=== PATIENT | female | born 1950 | race Caucasian/White ===

== ENCOUNTER 2017-12-26 07:32 | Outpatient (CLI) | payer MEDICARE ==
[~2017-12-26] VITALS: Ht 165.1 cm; Wt 65.5 kg
--- NOTE | ~2017-12-26 | OP ---
PATIENT NAME: LEIF RODARTE MEDICAL RECORD: [id number] :50 LOCATION:D.CAT ADMISSION DATE: SURGEON: AYSE VILLATORO MD DATE OF OPERATION: 12/26/2017 PROCEDURES: 1. PTCA stent RCA. 2. Selective coronary angiography. INDICATION: Angina and coronary artery disease. PROCEDURE IN DETAIL: After informed consent was obtained and after a detailed description of risks, benefits as well as alternative therapies, the patient elected to proceed with angiogram and angioplasty. The right radial area was prepped and draped in normal sterile fashion. Right radial artery was cannulated via modified Seldinger technique with placement of 6-Latvian sheath. All catheters exchanged through this sheath. FINDINGS: The right coronary artery has a long area of 80+ percent stenosis. This was addressed with a 3.5 x 38 mm [place] stent. Result was 0% residual stenosis. OVERALL IMPRESSION: Successful percutaneous transluminal coronary angioplasty stent of the right coronary artery going from 80% initial stenosis to 0% residual. TRANSINT:[id number] Voice Confirmation ID: [id number] DOCUMENT ID: [id number] AYSE VILLATORO MD at 1752 CC: [id number] DICTATION DATE: 12/26/17 1051 BLANKET BINDER: 12/26/17 1216 [facility] CLI 12/26/17 [address] [place] [address]
--- NOTE | ~2017-12-26 | HEMODYNAMI ---
PATIENT:LEIF RODARTE MEDICAL RECORD: [id number] : 50 LOCATION:DADA ADMISSION DATE: 12/26/17 Generatedon:12/26/201710:52 Patient name: LEIF RODARTE Patient #: [id number] SSN: : 1950 Date of study: 12/26/2017 Page: Of Hemodynamic Procedure Report Patient Data Patient Demographics Procedure consent was obtained First Name: LEIF Gender: Female Last Name: CAYDEN : 1950 Patient #: [id number] Age: 67 year(s) Race: Unknown Additional ID: [id number] Contact details Address: [address] [place] [address] State: [place] City: [place] Zip code: [address] Admission Admission Data Admission Date: 12/26/2017 Admission Time: 7:32 Height (in.): 65 BSA: 1.72 (m2) Height (cm.): 165.1 BMI: 23.96 (kg/m2) Weight (lbs.): 144 Weight (kg.): 65.32 Lab Results Lab Result Date: 12/26/2017 Lab Result Time: 0:00 Biochemistry Name Units Result Min Max BUN mg/dl 17 --(---*)-- 7 18 Creatinine mg/dl 1 --(--*-)-- 0.6 1.3 CBC Name Units Result Min Max Hemoglobin g/dl 13.3 -*(----)-- 13.5 17.5 Procedure Procedure Types Cath Procedure PCI Procedure Coronary Stent Coronary Stent Initial Procedure Description Procedure Date Procedure Date: 12/26/2017 Procedure Start Time: 10:41 Procedure End Time: 10:51 Procedure Staff Name Function Mike Banegas MD Performing Physician Trino Mcclain RT Monitor Jacinto Escalante RN Nurse Elli Mercado RT Scrub Procedure Data Cath Procedure Fluoroscopy Diagnostic fluoroscopy Total fluoroscopy Time: 1.5 time: 1.5 min min Diagnostic fluoroscopy Total fluoroscopy dose: dose: 250.38 mGy 250.38 mGy Contrast Material Contrast Material Type Amount (ml) Isovue 300 27 Entry Location Entry Primary Successful Side Size Upsize Upsize Entry Closure Harmon ccessful Closure Location (Fr) 1 (Fr) 2 (Fr) Remarks Device Remarks Radial Right 6 Fr Mechanical artery Short Compression Estimated blood loss: 10 ml Procedure Medications Medication Administration Route Dosage Oxygen etCO2 Nasal cannula 2 l/min Heparin Flush Bag added to field 2 bags (1000units/500ml NS) 0.9% NaCl I.V. 100 ml/hr Radial Cocktail added to field 1 syringe (Verapomil 2mg/Nitro 400mcg/Heparin 1500units) Fentanyl I.V. 50 mcg Versed I.V. 1 mg Fentanyl I.V. 50 mcg Versed I.V. 1 mg Radial Cocktail I.A. 1 syringe (Verapomil 2mg/Nitro 400mcg/Heparin 1500units) Heparin Bolus I.V. 4000 units Hemodynamics Rest BSA: 1.72 (m2) HGB: 13.3 (g/dl) O2 Consumption: Estimated: 145.14 (ml/min) O2 Co nsumption indexed: Estimated:84.38 (ml/min/m) Heart Rate: 47 (bpm) Snapshots Pre Cath Intra NCS Post Cath Vital Signs Time Heart Resp SPO2 etCO2 NIBP Rhythm Pain Sedation Rate (ipm) (%) (mmHg) (mmHg) Status Level (bpm) 9:54:56 48 16 95 0 135/61(95) NSR 0 (11) 10(A) , No pain 9:59:25 47 16 98 39.7 128/58(96) NSR 0 (11) 10(A) , No pain 10:03:49 46 16 100 39 123/58(80) NSR 0 (11) 10(A) , No pain 10:08:11 47 16 100 35.3 119/58(85) NSR 0 (11) 10(A) , No pain 10:12:37 48 16 98 23.2 118/47(85) NSR 0 (11) 10(A) , No pain 10:17:04 48 17 98 41.3 99/40(70) NSR 0 (11) 10(A) , No pain 10:21:20 47 17 98 41.3 97/45(77) NSR 0 (11) 10(A) , No pain 10:25:36 48 17 97 39 95/47(68) NSR 0 (11) 10(A) , No pain 10:29:50 48 17 97 36.8 106/48(72) NSR 0 (11) 10(A) , No pain 10:34:08 48 16 98 38.3 101/51(68) NSR 0 (11) 9(A) , No pain 10:38:24 47 17 97 36.8 96/47(70) NSR 0 (11) 9(A) , No pain 10:42:34 49 16 96 36.8 96/51(66) NSR 0 (11) 9(A) , No pain 10:46:50 56 16 93 37.5 92/41(66) NSR 0 (11) 9(A) , No pain 10:50:00 36.8 96/50(69) NSR 0 (11) 9(A) , No pain Medications Time Medication Route Dose Verified Delivered Reason Not es Effectiveness by by 9:58:52 Oxygen etCO2 2 l/min Mike Casey Per physician Nasal Makenzie Escalante RN cannula 9:59:00 Heparin Flush added 2 bags Mike Casey used for Bag to Makenzie Escalante RN procedure (1000units/500ml field NS) 9:59:11 0.9% NaCl I.V. 100 Mike Casey Per physician ml/hr Makenzie Escalante RN 9:59:33 Radial Cocktail added 1 Mike Casey used for (Verapomil to syringe Makenzie Escalante RN procedure 2mg/Nitro field 400mcg/Heparin 1500units) 10:32:02 Fentanyl I.V. 50 mcg Mike Casey for sedation Makenzie Escalante RN 10:32:15 Versed I.V. 1 mg Mike Casey for sedation Makenzie Escalante RN 10:34:40 Fentanyl I.V. 50 mcg Mike Csaey for sedation Makenzie Escalante RN 10:34:43 Versed I.V. 1 mg Mike Alfaroy for sedation Makenzie Escalante RN 10:43:36 Radial Cocktail I.A. 1 Mike Mckeon for (Verapomil syringe Makenzie thapa 2mg/Nitro 400mcg/Heparin 1500units) 10:43:50 Heparin Bolus I.V. 4000 Mike Casey for units Makenzie Escalante RN anticoagulation Procedure Log Time Note 9:40:52 Jacinto Escalante RN sent for patient. Start room use. 9:51:53 Diagnostic Cath status Elective 9:53:05 Time tracking: Regular hours (M-F 7:00 - 5:00) 9:53:11 Plan of Care:Hemodynamics will remain stable., Cardiac rhythm will remain stable., Comfort level will be maintained., Respiratory function will remain adequate., Patient/ family verbilizes understanding of procedure., Procedure tolerated without complication., Recovers from procedure without complications.. 9:53:22 Patient received from Pre/Post Procedure Room to CCL 3 Alert and oriented. Tansferred to table in Supine position. 9:53:24 Warm blankets applied, and deborah hugger turned on for patient comfort. 9:53:25 Correct patient and procedure confirmed by team. 9:53:28 Signed procedure consent form obtained from patient. 9:53:29 ECG and BP/O2 sat monitors applied to patient. 9:53:29 Vital chart was started 9:53:30 Baseline sample Acquired. 9:53:43 Rhythm: sinus bradycardia 9:53:47 Full Disclosure recording started 9:58:37 H&P Date Dictated: 12/18/2017 Within 30 days and on chart., H&P Addendum completed by physician on day of procedure. (MUST COMPLETE FOR ALL OUTPATIENTS). 9:58:38 Pre-procedure instructions explained to patient. 9:58:39 Pre-op teaching completed and patient verbalized understanding. 9:58:43 Family in patients room. 9:58:46 Patient NPO since Midnight. 9:58:52 Oxygen 2 l/min etCO2 Nasal cannula was administered by Jacinto Escalante RN; Per physician; 9:58:53 Is the patient allergic to Iodine/contrast media? No. 9:58:56 Is patient on blood thinner?Yes 9:58:59 ACC The patient was administered the following blood thiners within the last 24 hours: ACCPlavix 9:59:00 Heparin Flush Bag (1000units/500ml NS) 2 bags added to field was administered by Jacinto Escalante RN; used for procedure; 9:59:02 Patient diabetic? No. 9:59:06 ----Pre-sedation anethsthesia assessment.---- 9:59:11 0.9% NaCl 100 ml/hr I.V. was administered by Jacinto Escalante RN; Per physician; 9:59:11 Patient not . Patient is over age 55. 9:59:15 Previous problem with sedation/anesthesia? No ? 9:59:23 Snore? No 9:59:25 Sleep apnea? No 9:59:29 Deviated septum? No 9:59:30 Opens mouth fully? Yes 9:59:31 Sticks out tongue? Yes 9:59:33 Radial Cocktail (Verapomil 2mg/Nitro 400mcg/Heparin 1500units) 1 syringe added to field was administered by Jacinto Escalante RN; used for procedure; 9:59:43 Airway obstruction? Yes COPD 9:59:51 Dentures? Yes IN TIGHT 9:59:57 Pre procedure: right dorsailis pedis pulse 2+ Normal; easily identifiable; not easily obliterated 10:00:01 Patient pain scale 0/10 ?. 10:00:13 IV patent on arrival in left wrist with 0.9% NaCl at O. 10:00:46 Lab Result : BUN 17 mg/dl 10:00:46 Lab Result : Hemoglobin 13.3 g/dl 10:00:46 Lab Result : Creatinine 1 mg/dl 10:04:39 Zero performed for pressure channel P1 10:05:13 Lab results completed and on chart. 10:06:32 Right Radial & Right Groin area was prepped with chlora-prep and draped in sterile fashion 10:06:33 Alarms reviewed by R. N. 10:06:36 Sharps counted by scrub and verified by R.N. 10:10:47 Patient Height : 65 inches 10:10:52 Patient Weight : 144 lbs 10:11:31 ACIST Syringe (68510) opened to sterile field. 10:11:33 Medline Cath Pack ([id number]) opened to sterile field. 10:11:35 Bag Decanter (2002) opened to sterile field. 10:11:37 DIAGNOSTIC WIRE .035 260cm J wire (163820) opened to sterile field. 10:11:38 ACIST Hand Control (06219) opened to sterile field. 10:11:39 ACIST Manifold (60003) opened to sterile field. 10:11:45 Tegaderm 4 x 4 (1626W) opened to sterile field. 10:11:48 MBrace Wrist Support ([id number]) opened to sterile field. 10:12:42 SHEATH 6Fr Prelude Radial ([id number]) opened to sterile field. 10:13:00 INFLATOR Merit Jorgek (EU3325) opened to sterile field. 10:13:16 CHOICE PT Extra Support 182cm wire ([id number]) opened to sterile field. 10:31:24 Physician arrived 10::25 --------ALL STOP TIME OUT------ :: Final Timeout: patient, procedure, and site verified with staff and physician. All members of the team are in agreement. 10:31:31 Right Radial & Right Groin site verified by team. 10:31:35 Physical assessment completed. ASA score P 2 - A patient with mild systemic disease as per Mike Banegas MD. 10:31:42 Sedation plan: IV Moderate Sedation Medication:Versed, Fentanyl 10:32:02 Fentanyl 50 mcg I.V. was administered by Jacinto Escalante RN; for sedation; 10:32:04 GUIDE 6FR AR 1.0 catheter (SF5CI00) opened to sterile field. 10:32:15 Versed 1 mg I.V. was administered by Jacinto Escalante RN; for sedation; 10:34:40 Fentanyl 50 mcg I.V. was administered by Jacinto Escalante RN; for sedation; 10:34:43 Versed 1 mg I.V. was administered by Jacinto Escalante RN; for sedation; 10:38:13 TR BAND Standard (HOT19UVK) opened to sterile field. 10:38:14 Tegaderm 4 x 4 (1626W) opened to sterile field. 10:41:42 Procedure started. 10:41:54 Local anesthetic to right radial artery with Lidocaine 2% by Mike Banegas MD.INITIAL ACCESS ONLY 10:42:50 A 6 Fr Short sheath was inserted into the Right Radial artery 10:43:36 Radial Cocktail (Verapomil 2mg/Nitro 400mcg/Heparin 1500units) 1 syringe I.A. was administered by Mike Banegas MD; for vasodilation; 10:43:50 Heparin Bolus 4000 units I.V. was administered by Jacinto Escalante RN; for anticoagulation; 10:44:01 6 Fr AR 1 guide catheter was inserted over the wire 10:44:39 CHOICE wire advanced. 10:45:00 Wire advanced across lesion. 10:46:16 Place stent Inflation Number: 1 A PRASANTH RX 3.5 x 38 stent ([id number]) was prepped and advanced across the Mid RCA. The stent was deployed at 17 CHRISTINA for 0:10 (min:sec). 10:47:51 Stent catheter was removed intact over wire. 10:47:53 Wire removed. 10:47:53 Guide catheter removed. 10:48:07 Sheath removed intact; hemostasis achieved with Mechanical Compression to the Right Radial artery. 10:48:11 Procedure ended.(Physican Out) 10:48:37 Fluoroscopy time 01.50 minutes. 10:48:43 Flurop Dose total: 250.38 10:48:43 Fluoroscopy dose: 250.38 mGy 10:48:53 Contrast amount:Isovue 300 27ml. 10:49:03 Sharps counted by scrub and verified by R.N. 10:49:50 TR band inflated with 10cc of air. 10:49:52 Insertion/operative site no bleeding no hematoma. 10:50:04 Post right radial artery:stable 10:50:13 Post-procedure physical assessment completed. ASA score P 2 - A patient with mild systemic disease as per Mike Banegas MD. 10:50:34 Post procedure rhythm: unchanged., sinus bradycardia 10:50:41 Estimated blood loss: 10 ml 10:50:43 Post procedure instruction explained to patient.Patient verbalizes understanding. 10:50:43 Patient needs reinforcement of post procedure teaching. 10:50:44 Procedure and supply charges have been captured, reviewed, submitted and are correct. 10:51:01 Procedure type changed to Cath procedure, PCI procedure, Coronary Stent, Coronary Stent Initial 10:51:27 Vital chart was stopped 10:51:28 See physician's report for complete and final results. 10:51:30 Report given to Pre/Post Procedure Room. 10:51:33 Patient transfered to Pre/Post Procedure Room with Stretcher. 10:51:37 Procedure ended. 10:51:37 Full Disclosure recording stopped 10:51:42 End room use (Document Last) Intervention Summary Intervention Notes Time ActionType Lesion and Equipment Used Action# Pressure Duration Attributes 10:46:16 Place stent Mid RCA PRASANTH RX 3.5 x 1 17 00:10 38 stent ([id number]) Device Usage Item Name Manufacture Quantity Catalog Number Hospital Part Current Minimal Lot# / Charge Number Stock Stock Serial# Code ACIST Syringe Acist 1 45709 682932 237160 [id number] 20 (33661) Medical Systems Inc Medline Cath Cardinal 1 [id number] 961084 12581 159188 5 Pack Health ([id number]) Bag Decanter Microtek 1 2001S 817698 34802 940197 5 (2001S) Medical Inc. DIAGNOSTIC WIRE St Demetrius 1 089700 791527 120780 327730 30 .035 260cm J wire (999483) ACIST Hand Acist 1 41693 423458 639047 808279 5 Control (02830) Medical Systems Inc ACIST Manifold Acist 1 36598 826025 032531 742419 5 (04293) Medical Systems Inc Tegaderm 4 x 4 3M 2 1626W 603374 651631 119840 5 (1626W) MBrace Wrist Advanced 1 140-0250-00 782871 33337 052206 5 Support Vascular ([id number]) Dynamics SHEATH 6Fr Merit 1 [id number] 320311 454168 531861 5 Prelude Radial Medical ([id number]) INFLATOR Merit Merit 1 [id number] 507190 285275 662971 15 [facility] (FV0642) CHOICE PT Extra [place] 1 [id number] 366797 831058 396863 5 Support 182cm Scientific wire ([id number]) GUIDE 6FR AR Medtronic 1 [id number] 573813 00928 873105 1 1.0 catheter (IF0ZX78) TR BAND Terumo 1 [id number] 914946 732613 325633 40 Standard ([id number]) PRASANTH RX 3.5 x Medtronic 1 [id number] 495505 9874294 717330 5 [id number] 38 stent ([id number]) Signature Audit [place] Stage Time Signature Unsigned Intra-Procedure 12/26/2017 Trino Mcclain 10:52:18 AM RT(R) (CV) Signatures Monitor : Trino Mcclain RT Signature : Date : Time : [id number] [place] [address]
--- NOTE | ~2017-12-26 | HP ---
PATIENT: LEIF ROBERTS MEDICAL RECORD: [id number] ACCOUNT: [id number] LOCATION:DADA : 50 ADMISSION DATE: 12/26/17 HISTORY AND PHYSICAL EXAMINATION DIAGNOSES: 1. Angina. 2. Coronary artery disease. 3. Recent percutaneous transluminal coronary angioplasty stent of left anterior descending and left circumflex with concomitant disease right coronary artery. HISTORY OF PRESENT ILLNESS: Ms. Roberts presents with anginal symptomatology, found to have severe 3-vessel coronary artery disease, underwent PTCA stent of the LAD and circumflex. He is now brought back for PTCA stent of the RCA. REVIEW OF SYSTEMS: The patient reports easy bruising but reports no swollen glands. The patient reports no fever, no night sweats, no significant weight gain, no significant weight loss. No significant exercise tolerance. The patient reports no dry eyes, no irritation, no vision change. Patient reports no difficulty hearing and no ear pain. Patient reports no frequent nose bleeds or nose and sinus problems. Patient reports on arm pain on exertion. No shortness of breath while lying down. No history of heart murmur. Patient reports no cough, no wheezing or coughing up blood. Patient reports no abdominal pain, no vomiting. Normal appetite. No diarrhea and not vomiting blood. No nausea and no constipation. Patient reports no incontinence. No difficulty urinating. No hematuria. No increased frequency. Patient reports no muscle aches. No weakness, no arthralgias, no back pain. No swelling of the extremities. Patient reports no abnormal mole, no jaundice, no rashes. Reports no loss of consciousness. No weakness and no numbness. No seizures, dizziness, or headaches. The patient reports no depression, no sleep disturbance, feeling safe in a relationship and no alcohol abuse. Patient reports on fatigue. Reports no runny nose or sinus pressure. No itching, no hives, and no frequent sneezing. PHYSICAL EXAMINATION: GENERAL APPEARANCE: Well-nourished, well-developed, appears stated age. Level of distress, comfortable. PSYCHIATRIC: Mental status, alert, normal affect. Orientation, oriented to time, place and person. EYES: Lids and conjunctiva, noninjected. No discharge, no pallor. ENT: Lips, teeth, gums, normal dentition. Oropharynx, no cyanosis, no pallor. NECK: Carotid arteries, bilateral normal upstroke, no bruits, no thrills. JUGULAR VEINS: No jugular venous pressure or distention. CERVICAL LYMPH NODES: Nontender, nonenlarged. THYROID: Not enlarged. Nontender. No nodules. LUNGS: Respiratory effort, unlabored. CHEST: Normal curvature. No thoracic deformity. No chest wall tenderness. Percussion, resonant. Auscultation, clear. No wheezes, no rales, no rhonchi. CARDIOVASCULAR: Precordial exam, nondisplaced. No heaves or pericardial thrills. Rate and rhythm, regular. Heart sounds, normal S1, normal S2. No S3, no gallop, no rub. Systolic murmur, not heard. Diastolic murmur, not heard. EXTREMITIES: No cyanosis, no edema. Peripheral pulses, full and equal in all extremities, except as noted. No bruits appreciated. ABDOMEN: Soft, nondistended. Normal aorta. No bruit. Nontender. No masses. HISTORY AND PHYSICAL [id number] CAYDEN,LEIF Liver, nontender, no hepatomegaly. Spleen, nontender, no splenomegaly. MUSCULOSKELETAL: No joint tenderness. No joint swelling. No erythema. NEUROLOGICAL: Normal gait, normal strength, normal tone. SKIN: Warm and dry. OVERALL IMPRESSION: Anginal symptomatology with significant disease of the right coronary artery. We will proceed with percutaneous transluminal coronary angioplasty stent of the right coronary artery. TRANSINT:[id number] Voice Confirmation ID: [id number] DOCUMENT ID: [id number] AYSE VILLATORO MD at 1752 CC: [id number] DICTATION DATE: 12/26/17 1041 SECRETARIAL STENOGRAPHER: 12/26/17 1053 [facility] CLI 12/26/17 [facility] [address] [place] [address]
[~2017-12-26 07:32] MED LIST: BACLOFEN10 MG PO; BIOTIN5 MG PO; CALCIUM 600 +1 EAC3 PO; FOLBIC RF TABL1 EACH PO; GINGER500 MG PO; HYDROCODONE-APA1 TAB PO; INDERAL10 MG PO; LISINOPRIL2.5 MG PO; MAGNESIUM OXID250 MG PO; MILK THISTLE140 MG PO; MULTIPLE VITAMI1 TA1 PO; PLAVIX75 MG PO; TIMOPTIC 0.5 % O5 ML EACH EYE; VITAMIN B-6100 MG PO; VITAMIN D31000 UNI2 PO; VITAMIN E400 UNI2 PO; XALATAN 0.0052.5 ML EACH EYE
[2017-12-26] MEDS ORDERED: FISH OIL 1,0001 CA1 PO (08:00)
[2017-12-26] MEDS ORDERED: BAYER CHEWABLE81 MG PO (08:02)
[2017-12-26 08:12] VITALS: BP 126/68; Ht 165.1 cm; Wt 65.5 kg
[2017-12-26 08:21] LABS: BASOPHILS 0.3 % (0-2); EOSINOPHILS 0.8 % (0-7); HEMATOCRIT 40.5 % (36.0-48.0); HEMOGLOBIN 13.3 g/dL (12-16); LYMPHOCYTES 25.3 % (15-50); MCH 28.9 pg (26.0-34.0); MCHC 32.8 g/dL (31.0-37.0); MEAN PLATELET VOLUME 9.4 fL (7.4-10.4); NEUTROPHILS 65.6 % (40-80); RDW 13.1 % (11.5-14.5); WBC 7.5 10x3/uL (4.8-10.8)
[2017-12-26 08:28] LABS: PLATELET COUNT 204 10x3/uL (130-400)
[2017-12-26 08:31] LABS: ANION GAP 8.8 mmol/L (8-16); CALCIUM 9.7 mg/dL (8.5-10.1); CARBON DIOXIDE 32.1 mmol/L (21.0-32.0); POTASSIUM - SERUM 3.9 mmol/L (3.5-5.1)
== END 2017-12-26 15:15 | disposition home or self-care (01) ==
LOC: D.CATH 07:32
PROVIDERS: Internal Medicine Interventional Cardiology
DX: I25.119 Atherosclerotic heart disease of native coronary artery with unspecified angina pectoris (principal); Z95.5 Presence of coronary angioplasty implant and graft; Z01.812 Encounter for preprocedural laboratory examination

== ENCOUNTER → 2018-11-10 11:08 | Outpatient (CLI) | payer MEDICARE ==
[2017-12-26 08:12] VITALS: BMI 24.0
[~2018-11-10 11:08] MED LIST changes: +BAYER CHEWABLE81 MG PO; +FISH OIL 1,0001 CA1 PO
--- NOTE | 2018-11-16 14:16 | EC ---
PATIENT:LEIF RODARTE DATE OF SERVICE: 11/10/18 SEX: F MEDICAL RECORD: [id number] DATE OF : 50 LOCATION:D.[facility] AGE OF PATIENT: 68 ADMISSION DATE: 11/10/18 REFERRING PHYSICIAN: INTERPRETING PHYSICIAN: CAPRI CARBALLO MD ECHOCARDIOGRAM REPORT ECHO CHARGES 4 ECHO COMPLETE Date: 11/10/18 CLINICAL DIAGNOSIS: PVC'S H/O HTN/CAD ECHOCARDIOGRAPHIC MEASUREMENTS (adult normal given) AC root (d.<3.7cm) 3.4 cm LV Septum d (<1.2 cm> 1.3 cm Valve Excursion 2.1 cm LV Septum (systole) 2.1 cm Left Atria (s.<4.0cm> 3.5 cm LVPW d(<1.2cm) 1.3 cm RV (d.<2.3cm) 2.5 cm LVPW (sytole) 2.1 cm LV diastole(<5.6CM) 4.9 cm MV E-F(>70mm/sec) cm LV systole 2.4 cm LVOT Diameter 1.9 cm MV exc.(>10mm) cm Est.ejection fraction (50-75%) % DOPPLER: LVIT cm/sec A 40.0 cm/sec E 60.0 cm/sec LA cm/sec RVSP 32.0 mmHg LVOT 109 cm/sec AOP1/2T m/s Asc. Ao 136 cm/sec RVOT 46.0 cm/sec RA cm/sec PA 89.0 cm/sec AV Gradient Peak 7.4 mmHg AV Mean 3.8 mmHg AV Area 2.2 cm MV Gradient Peak 2.7 mmHg MV Mean 0.75 mmHg MV Area cm COMMENTS: OP - HC Salesperson Surgical Appliances: 1 GRACIELA KITTY Department Of Mathematics Chair: 3 Dr. Henson TAPE# PACS Pericardial Effusion N DATE OF SERVICE: Adequate 2D, color flow imaging, spectral Doppler, and M-Mode Mild LVH. LV internal dimensions are normal. Wall motion is normal. EF is greater than or equal to 55%. Aortic valve is tricuspid. No evidence of stenosis by Doppler interrogation. Left atrium is normal at 3.5 cm. Mitral valve shows no prolapse. Trace MR. Right-sided chambers are grossly normal. Mild TR. ECHOCARDIOGRAM REPORT [id number] LEIF RODARTE TRANSINT:[id number] Voice Confirmation ID: [id number] DOCUMENT ID: [id number] CAPRI CARBALLO MD at 1416 CC: [id number] DICTATION DATE: 11/12/18 1336 SCHOOL SECRETARY: 11/12/18 1534 [facility] CLI 11/10/18 [id number] [place] [id number]
== END | disposition home or self-care (01) ==
LOC: D.HCCARDIO 11:08
PROVIDERS: ATTEND Internal Medicine Interventional Cardiology
DX: I10 Essential (primary) hypertension (principal)

== ENCOUNTER 2019-02-10 15:32 | Observation (INO) | payer MEDICARE ==
[~2019-02-10] VITALS: Ht 167.6 cm; Wt 63.7 kg
--- NOTE | ~2019-02-10 | HEMODYNAMI ---
PATIENT:LEIF RODARTE MEDICAL RECORD: [id number] : 50 LOCATION:[facility] D.2114 ADMISSION DATE: 02/10/19 Generatedon:02/12/20199:40 Patient name: LEIF RODARTE Patient #: [id number] SSN: : 1950 Date of study: 02/11/2019 Page: Of Hemodynamic Procedure Report Patient Data Patient Demographics Procedure consent was obtained First Name: LEIF Gender: Female Last Name: CAYDEN : 1950 [facility] Initial: ZEE Age: 68 year(s) Patient #: [id number] Race: Additional ID: [id number] Contact details Address: [address] [place] [address] State: [place] City: [place] Zip code: [address] Past Medical History Allergies Allergen Reaction Date Comments Reported Other 02/11/2019 ERYTHROMYCIN,GABAPENTIN allergy Admission Admission Data Admission Date: 02/10/2019 Admission Time: 16:30 Room #: .[address] [place] [address] #: [id number] Height (in.): 65.75 BSA: 1.72 (m2) Height (cm.): 167 BMI: 22.95 (kg/m2) Weight (lbs.): 141.1 Weight (kg.): 64 Lab Results Lab Result Date: 02/11/2019 Lab Result Time: 0:00 Biochemistry Name Units Result Min Max BUN mg/dl 26 --(----)-* 7 18 Creatinine mg/dl 1 --(--*-)-- 0.6 1.3 eGFR ml/min 58 *-(----)-- 90 120 NONAFRICAN CBC Name Units Result Min Max Hematocrit % 35.8 *-(----)-- 42 54 Hemoglobin g/dl 12 *-(----)-- 13.5 17.5 Procedure Procedure Types Cath Procedure Diagnostic Procedure LHC LH w/Coronaries PCI Procedure Coronary Stent Coronary Stent Initial Procedure Description Procedure Date Procedure Date: 02/11/2019 Procedure Start Time: 15:44 Procedure End Time: 15:59 Procedure Staff Name Function Joe Ahmadi RN Nurse Reece Asher MD Performing Physician Elli Mercado RT Monitor Shantell Uribe RT Scrub Procedure Data Cath Procedure Fluoroscopy Diagnostic fluoroscopy Total fluoroscopy Time: 2.4 time: 2.4 min min Diagnostic fluoroscopy Total fluoroscopy dose: 264 dose: 264 mGy mGy Contrast Material Contrast Material Type Amount (ml) Isovue 300 65 Entry Location Entry Primary Successful Side Size Upsize Upsize Entry Closure Succes sful Closure Location (Fr) 1 (Fr) 2 (Fr) Remarks Device Remarks Femoral Right 5 Fr 6 Fr Exoseal artery Short Estimated blood loss: 10 ml Diagnostic catheters Device Type Used For End Catheter Placement MULTIPACK JL 4.0 5Fr Procedure catheter MULTIPACK 3DRC 5Fr Procedure catheter MULTIPACK Pigtail 5 Fr Procedure catheter Procedure Complications No complications Procedure Medications Medication Administration Route Dosage Oxygen etCO2 Nasal cannula 2 l/min Lidocaine 2% added to field 20 Heparin Flush Bag added to field 2 bags (1000units/500ml NS) 0.9% NaCl I.V. 100 ml/hr Versed I.V. 2 mg Fentanyl I.V. 100 mcg Heparin Bolus I.V. 4000 units Integrilin (Bolus I.V. 5.6 ml 2mg/ml) Plavix P.O. 600 mg Hemodynamics Rest BSA: 1.72 (m2) HGB: 12 (g/dl) O2 Consumption: Estimated: 146.49 (ml/min) O2 Cons umption indexed: Estimated:85.17 (ml/min/m) Heart Rate: 50 (bpm) Pressure Samples Time Site Value (mmHg) Purpose Heart Use Rate(bpm) 15:48 LV 111/7,11 Snapshot 51 Gradients Valve Time Site Site Mean SEP/DFP Peak To Heart Use 1 2 (mmHg) (sec/min) Peak Rate (mmHg) (bpm) Aortic 15:49 LV AO 52 Snapshots Pre Cath Intra NCS Post Cath Vital Signs Time Heart Resp SPO2 etCO2 NIBP (mmHg) Rhythm Pain Sedation Rate (ipm) (%) (mmHg) Status Level (bpm) 15:33:47 50 15 96 0 149/74(108) NSR 0 (11) 10(A) , No pain 15:38:07 51 15 96 0 126/54(75) NSR 0 (11) 10(A) , No pain 15:42:19 50 12 99 0 106/53(69) NSR 0 (11) 10(A) , No pain 15:46:23 52 11 99 42.6 121/60(86) NSR 0 (11) 9(A) , No pain 15:50:32 50 11 99 12.7 124/56(85) NSR 0 (11) 9(A) , No pain 15:54:44 51 12 99 29.1 113/53(86) NSR 0 (11) 9(A) , No pain 15:59:46 50 13 100 37.3 128/69(90) NSR 0 (11) 10(A) , No pain Medications Time Medication Route Dose Verified Delivered Reason Notes Effectiveness by by 15:37:29 Oxygen etCO2 2 Reece Diaz used for Nasal l/min St Martinez Ahmadi RN procedure cannula 15:37:35 Lidocaine 2% added 20ml Reece Newell for local to vial [facility] anesthetic field MD BALL 15:37:43 Heparin Flush added 2 Reece Newell used for Bag to bags [facility] procedure (1000units/500ml field MD BALL NS) 15:37:51 0.9% NaCl I.V. 100 Reece Diaz Per physician ml/hr St Martinez Ahmadi RN, MD 15:44:05 Versed I.V. 2 mg Reece Diaz for sedation [facility] Martinez Ahmadi RN, MD 15:44:11 Fentanyl I.V. 100 Reece Diaz for sedation mcg St Martinez Ahmadi RN, MD 15:49:22 Heparin Bolus I.V. 4000 Reece Diaz for verif ied units St Martinez Ahmadi RN anticoagulation with dr MD craven 15:52:38 Integrilin I.V. 5.6 Reece Diaz for waste d (Bolus 2mg/ml) ml St Martinez Ahmadi RN antiplatelet 4.4 ml therapy of vial 15:58:04 Plavix P.O. [address] for mg [facility] Martinez Ahmadi RN antiplatelet therapy Procedure Log Time Note 15:10:17 Joe Ahmadi RN sent for patient. Start room use. 15:17:17 Informed consent obtained and on chart 15:18:08 Procedure Status Urgent Heart Cath (IP). 15:18:10 Time tracking: Regular hours (M-F 7:00 - 5:00) 15:18:13 Plan of Care:Hemodynamics will remain stable., Cardiac rhythm will remain stable., Comfort level will be maintained., Respiratory function will remain adequate., Patient/ family verbilizes understanding of procedure., Procedure tolerated without complication., Recovers from procedure without complications.. 15:21:03 Patient Weight : 141.1 lbs 15:21:09 Patient Height : 65.75 inches 15:22:25 Lab Result : Hemoglobin 12 g/dl 15::25 Lab Result : Hematocrit 35.8 % 15::25 Lab Result : eGFR NONAFRICAN 58 ml/min 15::25 Lab Result : BUN 26 mg/dl 15:: Lab Result : Creatinine 1 mg/dl 15:23:29 Patient received from Med II to CCL 2 Alert and oriented. Tansferred to table in Supine position. 15:23:30 Correct patient and procedure confirmed by team. 15:23:30 Warm blankets applied, and deborah hugger turned on for patient comfort. 15:23:31 ECG and BP/O2 sat monitors applied to patient. 15:32:35 Vital chart was started 15:32:38 Baseline sample Acquired. 15:32:42 Rhythm: sinus rhythm 15:32:44 Full Disclosure recording started 15:32:58 H&P Date Dictated: 02/10/2019 Within 30 days and on chart., H&P Addendum completed by physician on day of procedure. (MUST COMPLETE FOR ALL OUTPATIENTS). 15:32:59 Pre-procedure instructions explained to patient. 15:33:03 Family in waiting room. 15:33:04 Patient NPO since Midnight. 15:33:55 Patient allergic to Other allergyERYTHROMYCIN,GABAPENTIN 15:34:11 Is the patient allergic to Iodine/contrast media? No. 15:34:14 Was the patient premedicated? Yes 15:34:16 Is patient on blood thinner?No 15:34:18 Patient diabetic? No. 15:34:41 Airway obstruction? Yes COPD 15:34:43 Snore? No 15:34:44 Sleep apnea? No 15:34:49 Patient pain scale 0/10 ?. 15:34:57 Lab results completed and on chart. 15:35:05 Right groin area was prepped with chlora-prep and draped in sterile fashion 15:35:06 Sharps counted by scrub and verified by R.N. 15:35:06 Alarms reviewed by R. N. 15:37:29 Oxygen 2 l/min etCO2 Nasal cannula was administered by Joe Ahmadi RN; used for procedure; Verbal order read back and verified. 15:37:35 Lidocaine 2% 20ml vial added to field was administered by Reece Asher MD; for local anesthetic; Verbal order read back and verified. 15:37:43 Heparin Flush Bag (1000units/500ml NS) 2 bags added to field was administered by Reece Asher MD; used for procedure; Verbal order read back and verified. 15:37:51 0.9% NaCl 100 ml/hr I.V. was administered by Joe Ahmadi RN; Per physician; Verbal order read back and verified. 15:43:33 --------ALL STOP TIME OUT------ 15:43:33 Physician arrived 15:43:45 Final Timeout: patient, procedure, and site verified with staff and physician. All members of the team are in agreement. 15:43:48 Right groin site verified by team. 15:43:53 Fire Safety Assessment: A--An alcohol-based skin anteseptic being used preoperatively., C--Open oxygen or nitrous oxide is being used., D--An ESU, laser, or fiber-optic light is being used. 15:44:03 Physical assessment completed. ASA score P 2 - A patient with mild systemic disease as per Reece Asher MD. 15:44:05 Versed 2 mg I.V. was administered by Joe Ahmadi RN; for sedation; Verbal order read back and verified. 15:44:11 Fentanyl 100 mcg I.V. was administered by Joe Ahmadi RN; for sedation; Verbal order read back and verified. 15:44:18 3a) 45-59 Moderately reduced kidney function. 15:44:23 Maximum allowable contrast dose (3.7 X eGFR X 0.75)161 ml. 15:44:29 Sedation plan: IV Moderate Sedation Medication:Versed, Fentanyl 15:44:39 Use device set Femoral Dx 15:44:42 Procedure started. 15:44:51 Local anesthetic to right femoral artery with Lidocaine 2% by Reece Asher MD.INITIAL ACCESS ONLY 15:45:00 A 5 Fr sheath was inserted into the Right Femoral artery 15:45:04 Bag Decanter (2002S) opened to sterile field. 15:45:04 ACIST Syringe (63119) opened to sterile field. 15:45:05 Medline Cath Pack ([id number]) opened to sterile field. 15:45:07 ACIST Manifold (59823) opened to sterile field. 15:45:07 ACIST Hand Control (60167) opened to sterile field. 15:45:12 DIAGNOSTIC Multipack 5Fr catheter set (ZX1322) opened to sterile field. 15:45:15 EMERALD Guide Wire (502-845) opened to sterile field. 15:45:15 SHEATH 5FR [place] (OUL440) opened to sterile field. 15:45:53 A MULTIPACK JL 4.0 5Fr catheter was advanced over the wire and used for Procedure. 15:45:56 LCA angiography performed. 15:46:06 Catheter removed. 15:46:48 A MULTIPACK 3DRC 5Fr catheter was advanced over the wire and used for Procedure. 15:47:08 RCA angiography performed. 15:47:34 Catheter removed. 15:47:57 A MULTIPACK Pigtail 5 Fr catheter was advanced over the wire and used for Procedure. 15:49:06 LV gram done using LATHAM 15:49:19 EF : 55 % 15:49:22 Heparin Bolus 4000 units I.V. was administered by Joe Ahmadi RN; for anticoagulation; verified with dr craven Verbal order read back and verified. 15:50:35 SHEATH 6FR [place] (ARC209) opened to sterile field. 15:50:36 GUIDE 6FR HS I catheter (LA6HSI) opened to sterile field. 15:50:39 WHISPER 300cm guide wire ([id number]) opened to sterile field. 15:50:40 INFLATOR Merit BasixCompak (LH4386) opened to sterile field. 15:50:48 Catheter removed. 15:51:03 Sheath upsized to a 6 Fr Short. 15:51:12 6 Fr hs1 guide catheter was inserted over the wire 15:51:17 WHISPER wire advanced. 15:51:45 Wire advanced across lesion. 15:52:38 Integrilin (Bolus 2mg/ml) 5.6 ml I.V. was administered by Joe Ahmadi RN; for antiplatelet therapy; wasted 4.4 ml of vial Verbal order read back and verified. 15:55:22 Place stent Inflation Number: 1 A COBRA RX 3.5 X 12 Stent was prepped and advanced across the Prox RCA 90. The stent was deployed at 14 CHRISTINA for 0:26 (min:sec) 0. 15:55:51 EXOSEAL 6Fr (EX600) opened to sterile field. 15:56:13 Stent catheter was removed intact over wire. 15:56:14 Guide catheter removed. 15:56:14 Wire removed. 15:56:23 Sheath removed intact; hemostasis achieved with Exoseal to the Right Femoral artery. 15:57:25 Procedure ended.(Physican Out) 15:57:40 Fluoroscopy time 02.40 minutes. 15:57:45 Fluoroscopy dose: 264 mGy 15:57:45 Flurop Dose total: 264 15:57:50 Dose Area Product 87850 mGy/cm. 15:57:56 Contrast amount:Isovue 300 65ml. 15:57:59 Maximum allowable dose exceeded? No. 15:58:01 Sharps counted by scrub and verified by R.N. 15:58:04 Insertion/operative site no bleeding no hematoma. 15:58:04 Plavix 600 mg P.O. was administered by Joe Ahmadi RN; for antiplatelet therapy; Verbal order read back and verified. 15:58:06 Post Procedure Pulses reassessed and unchanged 15:58:11 Post-procedure physical assessment completed. ASA score P 2 - A patient with mild systemic disease as per Reece Asher MD. 15:58:14 Post procedure rhythm: unchanged. 15:58:17 Estimated blood loss: 10 ml 15:58:18 Post procedure instruction explained to patient.Patient verbalizes understanding. 15:58:28 Procedure type changed to Cath procedure, Diagnostic procedure, LHC, LHC w/Coronaries, PCI procedure, Coronary Stent, Coronary Stent Initial 15:58:30 Procedure and supply charges have been captured, reviewed, submitted and are correct. 15:58:50 Procedure Complication : No complications 15:58:56 Vital chart was stopped 15:59:00 Report given to Pre/Post Procedure Room. 15:59:08 Patient transfered to Pre/Post Procedure Room with Stretcher. 15:59:42 Full Disclosure recording stopped 15:59:42 Procedure ended. 15:59:49 End room use (Document Last) 15:59:58 ACC-PCI Only Patient was given prescriptions, or instructed by Reece Asher MD to start/continue the following medications upon discharge: Plavix Intervention Summary Intervention Notes Time ActionType Lesion and Equipment Action# Pressure Duration Attributes Used 15:55:[address] Place stent Prox RCA COBRA RX 1 14 00:26 3.5 X 12 Stent Device Usage Item Name Manufacture Quantity Catalog Hospital Part Current Minimal Lot# / Number Charge Number Stock Stock Serial# Code ACIST Syringe Acist 1 08298 706925 620340 295969 20 (46055) Medical Systems Inc Bag Decanter Microtek 1 2001S 036544 22278 851308 5 (2001S) Medical Inc. Medline Cath Medline 1 [id number] 592961 71766 757657 5 Pack ([id number]) ACIST Hand Acist 1 91933 410350 656886 466243 5 Control Medical (04418) Systems Inc ACIST Manifold Acist 1 10121 076159 430763 398732 5 (03562) Medical Systems Inc DIAGNOSTIC Cardinal 1 DC5419 551853 95340 571454 30 Multipack 5Fr Health catheter set (EH9207) SHEATH 5FR Terumo 1 NZV929 795917 242049 534628 5 [place] (DUF881) EMERALD Guide Cardinal 1 502-455 389415 386289 491897 5 Wire (502-455) Health MULTIPACK JL Cardinal 1 528773 5 4.0 5Fr Health catheter MULTIPACK 3DRC Cardinal 1 215448 5 5Fr catheter Health MULTIPACK Cardinal 1 257191 5 Pigtail 5 Fr Health catheter SHEATH 6FR Terumo 1 OXM714 916263 345595 033868 40 [place] (JTT167) GUIDE 6FR HS I Medtronic 1 LA6HSI 146178 45039 521549 1 catheter (LA6HSI) WHISPER 300cm Lipscomb 1 [id number] 021425 189116 004005 5 guide wire Vascular ([id number]) INFLATOR Merit Merit 1 GT3116 802179 689019 593633 15 Freight Connection (LQ9318) COBRA RX 3.5 X Celonova 1 039-49-45504 402279 [id number] 296484 7 [id number] 12 stent Biosciences ([id number]) EXOSEAL 6Fr Cardinal 1 EX600 148788 755848 532457 10 (EX600) Health Signature Audit [place] Stage Time Signature Unsigned Intra-Procedure 02/11/2019 Elli Mercado 4:00:48 PM RT(R) Intra-Procedure 02/11/2019 Joe Ahmadi RN 4:01:16 PM Intra-Procedure 02/11/2019 Elli Han RT(R) 4:02:07 PM RT(R) 02/12/2019 9:36:29 AM Intra-Procedure 02/12/2019 Reece Kilgore 9:40:41 AM Martinez [place] [id number] [place] [id number]
[2019-02-10 16:20] LABS: BASOPHILS 0.4 % (0-2); EOSINOPHILS 1.5 % (0-7); HEMATOCRIT 38.8 % (36.0-48.0); HEMOGLOBIN 12.8 g/dL (12-16); IMMATURE GRANULOCYTES 0.1 % (0-5); MCH 28.7 pg (26.0-34.0); MEAN PLATELET VOLUME 9.5 fL (7.4-10.4); MONOCYTES 6.4 % (2-11); NEUTROPHILS 67.6 % (40-80); PLATELET COUNT 187 10x3/uL (130-400); RBC 4.46 10x6/uL (4.00-5.40); RDW 13.2 % (11.5-14.5); WBC 6.9 10x3/uL (4.8-10.8)
[2019-02-10 16:37] LABS: APTT 28.2 SECONDS (22.8-39.4); INR 0.94 (0.85-1.17); PROTIME 12.1 SECONDS (11.6-15.0)
[2019-02-10 16:47] LABS: ALBUMIN 3.5 g/dL (3.4-5.0); ALKALINE PHOSPHATASE 41 U/L (46-116); ALT (SGPT) 19 U/L (10-68); BILIRUBIN - TOTAL 0.42 mg/dL (0.2-1.3); CALC OSMOLALITY 285 mosm/kg (275-300); CALCIUM 9.8 mg/dL (8.5-10.1); CARBON DIOXIDE 29.3 mmol/L (21.0-32.0); CHLORIDE - SERUM 107 mmol/L (98-107); GLUCOSE 80 mg/dL (74-106); POTASSIUM - SERUM 4.4 mmol/L (3.5-5.1); PROTEIN - SERUM 6.9 g/dL (6.4-8.2); SODIUM 142 mmol/L (136-145); UREA NITROGEN 25 mg/dL (7-18); eGFR NON AFRICAN AMERICAN 58 mL/min (90-120)
[2019-02-10 16:59] LABS: CKMB 1.1 U/L (0.0-3.6); CREATINE KINASE 38 UL (21-215); MAGNESIUM - SERUM 1.8 mg/dL (1.8-2.4)
[2019-02-10 17:00] LABS: TROPONIN-I < 0.017 ng/mL (0.000-0.060)
--- NOTE | 2019-02-10 17:00 | NUR ---
PT C/O CHRONIC BACK PAIN REQUESTING HOME MED [facility] . DR RAMIREZ CALLED AND NEW ORDER RCVD AND ADMIN
[2019-02-10 17:03] VITALS: BP 115/51
--- NOTE | 2019-02-10 17:13 | NUR ---
ATTEMPTED TO CALL REPORT, NURSE UNAVAILABLE
--- NOTE | 2019-02-10 17:28 | NUR ---
REPORT CALLED TO [facility] BY SBAR FORMAT
[2019-02-10 17:45] VITALS: BP 118/60
--- NOTE | 2019-02-10 17:45 | NUR ---
PT REPORTS "THE PAIN MED IS STARTING TO WORK" PT SITTING UP IN BED TEXTING ON PHONE, NAD NOTED, TRANSPORTED TO ROOM #3434, CONDITION STABLE
--- NOTE | 2019-02-10 17:51 | NUR ---
transfer from er by w/c. leticiainted to room. call light in reach. will cont. plan of care.
--- NOTE | 2019-02-10 19:03 | MORECARE ---
CASE MANAGEMENT DISCHARGE SUMMARY PATIENT: YOSELIN DARDEN ZEE UNIT: [id number] ADM DATE: 02/10/19 AGE: 68 : 50 SEX: F ROOM/BED: D.0334 AUTHOR: COLLIN DELEON PHYSICIAN: REFERRING PHYSICIAN: LIZET RAMIREZ MD DATE OF SERVICE: 02/10/19 Discharge Plan Patient Name: YOSELIN DARDEN [place] : 1950 Planned Disposition: Anticipated Discharge Date: Discharge Date: Expected LOS: Initial Reviewer: [email or web address] Initial Review Date: 02/10/2019 Generated: 02/10/19 8:03 pm Coverage Notice Reviewer: [email or web address] - Noelle Echols Notice Issued Date-Time: 02/10/2019 16:30 Notice Type: Medicare Outpatient Observation Notice Notice Delivered To: Patient Relationship to Patient: Self Manager Convention Name: Yoselin Darden Delivery Method: - Karen Days: Prior Verbal Notification: Recipient Understood Notice: Recipient Signature: Med Rec Note Co-signed by Attending: Coverage Notice Comment: Patient Name: YOSELIN DARDEN Page [phone] at 1903 All edits/amendments must be made on the electronic document DICTATION DATE: 02/10/191902 SUPERVISORY GEOGRAPHER: ASHLEY 02/10/191902 RPT#: [id number] DC DATE: STATUS: ADM IN [facility] [address] [place] [address] END OF REPORT
--- NOTE | 2019-02-10 19:45 | NUR ---
EVENING ROUNDS COMPLETED. VSS, AAOX4, NO S/S OF RESP. DISTRESS. RR EVN AND UNLABORED. PT DENIES ANY NEED FOR PAIN AT THIS TIME. PT SINUS ROBBIN AT THIS TIME. PIV RFA NS INFUSING @ 125MLS/HR. PT DENIES ANY FURTHER NEEDS AT THIS TIME. WILL CPOC. CL WITHIN REACH.
[2019-02-10 20:00] VITALS: BP 113/58
--- NOTE | 2019-02-10 20:00 | NUR ---
EVENING ROUNDS COMPLETED. VSS, AAOX4, NO S/S OF DISTRESS. FAMILY AT BEDSIDE, HOME BIPAP @ BEDSIDE. PT DENIES ANY NEED FOR PAIN AT THIS TIME. WILL CPOC. CL WITHIN REACH.
[2019-02-10 21:53] VITALS: BP 113/58; Ht 167.6 cm; Wt 63.7 kg
[2019-02-10 23:03] LABS: CKMB 0.8 U/L (0.0-3.6); CREATINE KINASE 32 UL (21-215)
[2019-02-10 23:04] LABS: TROPONIN-I < 0.017 ng/mL (0.000-0.060)
[2019-02-11] VITALS: BP 124/64
[2019-02-11 04:00] VITALS: BP 140/64
[2019-02-11 04:38] LABS: BASOPHILS 0.3 % (0-2); EOSINOPHILS 2.2 % (0-7); HEMATOCRIT 35.8 % (36.0-48.0); IMMATURE GRANULOCYTES 0.3 % (0-5); LYMPHOCYTES 32.1 % (15-50); MCHC 33.5 g/dL (31.0-37.0); MCV 86.5 fL (80.0-100.0); MEAN PLATELET VOLUME 9.6 fL (7.4-10.4); MONOCYTES 8.3 % (2-11); NEUTROPHILS 56.8 % (40-80); PLATELET COUNT 172 10x3/uL (130-400); RBC 4.14 10x6/uL (4.00-5.40); RDW 13.3 % (11.5-14.5); WBC 5.9 10x3/uL (4.8-10.8)
[2019-02-11 05:11] LABS: ALBUMIN 2.9 g/dL (3.4-5.0); ALKALINE PHOSPHATASE 34 U/L (46-116); BILIRUBIN - TOTAL 0.38 mg/dL (0.2-1.3); CALC OSMOLALITY 291 mosm/kg (275-300); CALCIUM 8.6 mg/dL (8.5-10.1); CARBON DIOXIDE 28.1 mmol/L (21.0-32.0); CHLORIDE - SERUM 111 mmol/L (98-107); CKMB 0.7 U/L (0.0-3.6); CREATINE KINASE 31 UL (21-215); GLUCOSE 92 mg/dL (74-106); MAGNESIUM - SERUM 1.8 mg/dL (1.8-2.4); PHOSPHOROUS 3.3 mg/dL (2.5-4.9); POTASSIUM - SERUM 4.3 mmol/L (3.5-5.1); PRO BNP 363 pg/mL (0-125); PROTEIN - SERUM 5.8 g/dL (6.4-8.2); SODIUM 144 mmol/L (136-145); UREA NITROGEN 26 mg/dL (7-18); eGFR NON AFRICAN AMERICAN 58 mL/min (90-120)
[2019-02-11 05:15] LABS: ALT (SGPT) 14 U/L (10-68); TROPONIN-I < 0.017 ng/mL (0.000-0.060)
--- NOTE | 2019-02-11 07:15 | NUR ---
RECEIVED PT IN BED AAOX4 RESP UNLABORED DENIES ANY NEEDS OR DISCOMFORT AT THIS TIME
--- NOTE | 2019-02-11 08:10 | NUR ---
TO INSIDE BARREL POLISHER VIA BED
[2019-02-11 09:28] VITALS: BP 143/62
--- NOTE | 2019-02-11 09:30 | NUR ---
RECEIVED PT BACK FROM [employer] VIA BED VSS ZEPHER BAND INTACT WITH BRACE NO SIGNS OF BLEEDING PPPX4 WILL CONTINUE TO MONITOR
[2019-02-11 12:53] VITALS: BP 142/55
--- NOTE | 2019-02-11 13:08 | CN ---
PATIENT NAME:LEIF RODARTE MEDICAL RECORD: [id number] : 50 LOCATION:D. D.2114 ADMIT DATE: 02/10/19 ACCOUNT: [id number] CONSULTING PHYSICIAN: CAPRI CARBALLO MD REFERRING PHYSICIAN: LIZET RAMIREZ MD DATE OF CONSULTATION: 02/11/2019 HISTORY OF PRESENT ILLNESS: A 68-year-old female with known history of coronary artery disease, status post multivessel intervention. Has a history of hypertension and hyperlipidemia. Transferred from [place] with chest tightness and pressure, rest angina, radiating to the jaw. Having symptomology for about the past week. Rest symptomology prior to transfer and admission. Has had intermittent rest pain since arriving here. We are asked to see her concerning her cardiovascular status. PAST MEDICAL HISTORY: Includes: 1. History of hypertension. 2. Hyperlipidemia. 3. Coronary artery disease as described above. MEDICATIONS: Include Inderal 10 mg p.o. b.i.d., timolol eyedrops 1 drop to each eye b.i.d., hydrocodone 10 mg p.o. every day, aspirin 81 every day, fish oil 1 tablet b.i.d., lisinopril 2.5 daily, baclofen 5 mg p.o. at bedtime. ALLERGIES: ERYTHROMYCIN AND GABAPENTIN. SOCIAL HISTORY: Lives in [place]. Tries to exercise regularly. Easily takes care of all ADLs. Smokes a pack a day. REVIEW OF SYSTEMS: The patient reports easy bruising but reports no swollen glands. The patient reports no fever, no night sweats, no significant weight gain, no significant weight loss. No significant exercise tolerance. The patient reports no dry eyes, no irritation, no vision change. Patient reports no difficulty hearing and no ear pain. Patient reports no frequent nose bleeds or nose and sinus problems. Patient reports on arm pain on exertion. No shortness of breath while lying down. No history of heart murmur. Patient reports no cough, no wheezing or coughing up blood. Patient reports no abdominal pain, no vomiting. Normal appetite. No diarrhea and not vomiting blood. No nausea and no constipation. Patient reports no incontinence. No difficulty urinating. No hematuria. No increased frequency. Patient reports no muscle aches. No weakness, no arthralgias, no back pain. No swelling of the extremities. Patient reports no abnormal mole, no jaundice, no rashes. Reports no loss of consciousness. No weakness and no numbness. No seizures, dizziness, or headaches. The patient reports no depression, no sleep disturbance, feeling safe in a relationship and no alcohol abuse. Patient reports on fatigue. Reports no runny nose or sinus pressure. No itching, no hives, and no frequent sneezing. PHYSICAL EXAMINATION: GENERAL: A middle-aged female, in no acute distress, appears stated age. VITAL SIGNS: Blood pressure 140/64, pulse 60 and regular. HEENT: Normocephalic, atraumatic. NECK: No JVD or bruit. HEART: Regular. A II/ systolic ejection murmur. LUNGS: Good air excursion. CONSULT REPORT [id number] CAYDEN,LEIF ZEE ABDOMEN: Soft, nontender. EXTREMITIES: Pulses 2+. No edema. DIAGNOSTIC DATA: ECG shows LVH, secondary ST-T changes. IMPRESSION: Class IV angina, acute coronary syndrome. PLAN: Plan for angiography, intervention based on the above. TRANSINT:[id number] Voice Confirmation ID: [id number] DOCUMENT ID: [id number] CAPRI CARBALLO MD at 1308 CC: [id number] DICTATION DATE: 02/11/19825 COLOR TESTER: 02/11/19 1044 [place] [address]
[2019-02-11 17:00] VITALS: BP 136/62
[2019-02-11 20:00] VITALS: BP 148/54
--- NOTE | 2019-02-11 20:12 | NUR ---
A DC'D ORDER PUT IN BY ROYA CARBALLO. CALLED ZENAIDA ABOUT DC ORDER. HE STATED FOR PT TO REMAIN IN HOSPITAL TO BE POSSIBLY DC'D HOME TOMORROW.
[2019-02-12] VITALS: BP 116/52
[2019-02-12 04:30] VITALS: BP 120/52
[2019-02-12 05:39] LABS: BASOPHILS 0.4 % (0-2); EOSINOPHILS 1.9 % (0-7); HEMATOCRIT 37.5 % (36.0-48.0); HEMOGLOBIN 11.9 g/dL (12-16); IMMATURE GRANULOCYTES 0.2 % (0-5); MCH 28.5 pg (26.0-34.0); MCHC 31.7 g/dL (31.0-37.0); MEAN PLATELET VOLUME 9.2 fL (7.4-10.4); NEUTROPHILS 78.5 % (40-80); PLATELET COUNT 157 10x3/uL (130-400); RBC 4.17 10x6/uL (4.00-5.40); RDW 13.4 % (11.5-14.5); WBC 4.8 10x3/uL (4.8-10.8)
[2019-02-12 06:00] LABS: ANION GAP 12.7 mmol/L (8-16); CALCIUM 8.7 mg/dL (8.5-10.1); CARBON DIOXIDE 26.3 mmol/L (21.0-32.0); MAGNESIUM - SERUM 1.6 mg/dL (1.8-2.4)
[2019-02-12 06:14] LABS: PHOSPHOROUS 2.4 mg/dL (2.5-4.9)
[2019-02-12 06:31] LABS: MCV 89.9 fL (80.0-100.0)
[2019-02-12 09:01] VITALS: BP 128/79
[2019-02-12] MEDS ORDERED: PLAVIX75 MG PO (11:22)
--- NOTE | 2019-02-12 12:40 | OP ---
PATIENT NAME: LEIF RODARTE MEDICAL RECORD: [id number] :50 LOCATION:D.M2 D.2114 ADMISSION DATE:02/10/19 SURGEON: CAPRI CARBALLO MD DATE OF OPERATION: 02/11/2019 PROCEDURES: Left heart catheterization, selective coronary angiography, plus PTCA and stent report to right coronary. CATHETERS: A 5-[place] sheath, 5/4 left and right Jose David, 5/4 pig. The procedure was well tolerated. The patient was returned to [place]. Sheath was removed. ExoSeal device was placed. FINDINGS: Left ventriculography in 30-degree LATHAM view: Normal wall motion and normal systolic function. CORONARY ANATOMY: LEFT MAIN: Left main is free of disease. LAD: LAD is free of disease. Previous placed stents are widely patent. There is no evidence of restenosis. No evidence of progression of galena disease. CIRCUMFLEX: Again widely patent stent without evidence of restenosis. No evidence of progression of galena disease. RIGHT CORONARY ARTERY: At the very proximal portion of the most proximal stent has a 90% end-stent restenosis. The rest of the stent itself has no evidence of restenosis. IMPRESSION: Discrete area of end-stent restenosis. PLAN: Intervention momentarily. A 5-[place] sheath was exchanged for a 6-[place] sheath. A hockey stick guide catheter provided excellent guide catheter support, followed by 300-cm Whisper wire, was placed across the tightly occluded area down this portion of the vessel. Stent deployed was a 3.5 x 12 mm Cobra stent up to 14 atmospheres for 45 seconds. Final angiography shows excellent resolution of an 80% to 90% stenosis, no significant residual. ERICKA flow was 3 throughout the procedure. Heparin was used during the case. Sheath was closed with ExoSeal device. Plavix was loaded in the lab. TRANSINT:[id number] Voice Confirmation ID: [id number] DOCUMENT ID: [id number] CAPRI CARBALLO MD at 1240 CC: [id number] DICTATION DATE: 02/11/19 1613 WAREHOUSE PULLER: 02/12/19 0125 ADM IN [place] [id number] [place] [address]
[2019-02-12 13:19] VITALS: BP 143/67
--- NOTE | 2019-02-12 14:06 | NUR ---
REVIEWED DISCHARGE INSTRUCTIONS WITH PT STATES UNDERSTANDING COPY DCD SALINE LOCK TO RFA WITH IV CATHETER INTACT SITE FREE OF REDNESS OR EDEMA PT AWAITING ON RIDE FROM TSE
--- NOTE | 2019-02-12 14:06 | NUR ---
PT DISCHARGED HOME LEFT IN STABLE CONDITION VIA W/C WITH ALL PERSONAL BELONGINGS
--- NOTE | 2019-02-12 14:48 | MORECARE ---
CASE MANAGEMENT DISCHARGE SUMMARY PATIENT: YOSELIN DARDEN ZEE UNIT: [id number] ADM DATE: 02/10/19 AGE: 68 : 50 SEX: F ROOM/BED: D.6384 AUTHOR: COLLIN DELEON PHYSICIAN: REFERRING PHYSICIAN: LIZET RAMIREZ MD DATE OF SERVICE: 02/12/19 Discharge Plan Patient Name: YOSELIN DARDEN [facility] [facility] 1950 Planned Disposition: Anticipated Discharge Date: Discharge Date: 02/12/2019 Expected LOS: Initial Reviewer: [email or web address] Initial Review Date: 02/10/2019 Generated: 02/12/19 3:48 pm Coverage Notice Reviewer: [email or web address] Ligia Echols Notice Issued Date-Time: 02/10/2019 16:30 Notice Type: Medicare Outpatient Observation Notice Notice Delivered To: Patient Relationship to Patient: Self Insurance Assistant Name: Yoselin Darden Delivery Method: - Karen Days: Prior Verbal Notification: Recipient Understood Notice: Recipient Signature: Med Rec Note Co-signed by Attending: Coverage Notice Comment: Last DP export: 02/10/19 6:03 p Patient Name: YOSELIN DARDEN Page [id number] at 1448 All edits/amendments must be made on the electronic document DICTATION DATE: 02/12/191447 RESIN MIXER: ASHLEY 02/12/19 1448 RPT#: [id number] [place] DATE:02/12/19 STATUS: DIS IN [place] [id number] [place] [address] END OF REPORT
== END 2019-02-12 14:06 | disposition home or self-care (01) ==
LOC: D.ER 15:32 → D.M2 16:30 → OBSVTIME 16:45 → D.M2 02-11 07:45 → D.SDCHOLD 02-11 07:45 → D.M2 02-12 14:06
PROVIDERS: Family Medicine; ADMIT Internal Medicine Nephrology; ATTEND Internal Medicine Nephrology
DX: I25.110 Atherosclerotic heart disease of native coronary artery with unstable angina pectoris (principal); T82.855A Stenosis of coronary artery stent, initial encounter; Y83.9 Surgical procedure, unspecified as the cause of abnormal reaction of the patient, or of later complication, without mention of misadventure at the time of the procedure; I10 Essential (primary) hypertension; E78.5 Hyperlipidemia, unspecified; N17.9 Acute kidney failure, unspecified; J44.9 Chronic obstructive pulmonary disease, unspecified; F32.9 Major depressive disorder, single episode, unspecified; F41.9 Anxiety disorder, unspecified